=== PATIENT | female | born 2005 | race Two or more races ===

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

== ENCOUNTER 2023-09-04 06:00 | Day surgery (SDC) | payer OTHER ==
[2023-08-22 11:39] LABS: HEMATOCRIT 38.5 % (36.0-45.00); HEMOGLOBIN 13.3 g/dL (12.0-15.00); MEAN CELL VOLUME 93.8 fL (80.00-100.00); MEAN CORPUSCULAR HEMOGLOBIN 32.4 pg (27.00-32.0); MEAN CORPUSCULAR HGB CONC 34.5 g/dl (32.0-36.0); PLATELET COUNT 273 K/uL (150-450); RED BLOOD COUNT 4.11 M/uL (4.00-6.00); RED CELL DISTRIBUTION WIDTH 12.7 % (11.5-14.5)
[2023-08-22 11:42] LABS: URINE APPEARANCE Cloudy; URINE BILIRRUBIN Negative (NEGATIVE); URINE BLOOD Trace; URINE COLOR Yellow; URINE GLUCOSE Negative (NEGATIVE); URINE KETONE 15 (NEGATIVE); URINE LEUKOCYTE Moderate; URINE NITRATE Negative; URINE PROTEIN 30 (NEGATIVE)
[2023-08-22 11:48] LABS: URINE BACTERIA 5945.8 uL (0.0-1933); URINE CAST 1.52 uL (0.0-1.40); URINE EPITHELIAL CELLS 94.7 uL (0.0-38.8); URINE RBC 3.6 uL (0.0-20.8); URINE WBC 359.5 uL (0.0-23.2)
[2023-08-22 12:14] LABS: INR 1.01; PARTIAL THROMBOPLASTIN TIME 27.9 SECONDS (22.0-34.0)
[2023-08-22 12:18] LABS: PROTHROMBIN TIME 10.6 SECONDS (9.0-11.5)
[2023-08-22 12:27] LABS: ALBUMIN 3.5 gm/dL (3.4-5.0); BILIRUBIN TOTAL 0.46 mg/dL (0.3-1.2); CALCIUM 8.5 mg/dL (8.5-10.1); CREATININE SERUM 0.5 mg/dL (0.55-1.02); GFR 157.29; GLOBULINA 3.3 G/DL (2.4-3.5); POTASSIUM 3.94 mEq/L (3.5-5.1); TOTAL PROTEIN 6.8 gm/dL (6.4-8.2)
[~2023-09-04] VITALS: Ht 160 cm; Wt 59.0 kg
[~2023-09-04 06:00] MED LIST: NOVOLOG100 UNIT/1
[2023-09-04] MEDS ORDERED: BUPIVACAINE HCL/Mpf 0.5% 10ML VIAL ONE (10:02)
[2023-09-04] MEDS ORDERED: POVIDONE-IODINE 118 ML BOTT TOP ONE (10:02)
[2023-09-04] MEDS ORDERED: DIBUCAINE 30 GM TUBE ONE (10:02)
[2023-09-04] MEDS ORDERED: METRONIDAZOLE/SODIUM CHLORIDE 500 MG/100 ML PIGGYBACK IV ONE (10:03)
[2023-09-04] MEDS ORDERED: LIDOCAINE HCL 1%/EPINEPHRINE 20ML VIAL IJ ONE (10:03)
[2023-09-04] MEDS ORDERED: CEFTRIAXONE SODIUM 2,000 MG VIAL ONE (10:03)
[2023-09-04] MEDS ORDERED: HEMOSTATIC MATRIX 1 KIT KIT TOP ONE (10:52)
[2023-09-04] MEDS ORDERED: CHLORHEXIDINE GLUCONATE 120 ML BOTTLE TOP ONE (11:22)
[2023-09-04] MEDS ORDERED: PERCOCET 5-3251 EACH PO (13:08)
[2023-09-04] MEDS ORDERED: AMOX1TAB5 PO (13:09)
[2023-09-04] MEDS ORDERED: PEPCID AC20 MG PO (13:09)
== END 2023-09-04 17:35 | disposition home or self-care (01) ==
LOC: CIR.AMB 06:00
PROVIDERS: ATTEND Surgery
DX: L05.91 Pilonidal cyst without abscess (principal); E11.9 Type 2 diabetes mellitus without complications; Z88.6 Allergy status to analgesic agent